=== PATIENT | female | born 1990 | race Two or more races ===

== ENCOUNTER → 2025-05-06 | Outpatient (CLI) | payer BC, SELFPAY ==
--- NOTE | 2025-05-06 13:30 | XR_ITS ---
Examination: Transvaginal ultrasound of the pelvis, complete Technique: Transvaginal sonographic images pelvis performed using pepper scale imaging Exam date and time: May 06, 2025, 1402 hours INDICATIONS: Irregular heavy menses 3 years FINDINGS: Uterus 7.6 cm endometrial stripe 0.2 cm No uterine mass or intrauterine gestation Right ovary 2.7 cm arterial flow Left ovary 2.6 cm arterial flow 16 mm follicular cyst IMPRESSION: Negative study.
== END | disposition home or self-care (01) ==
PROVIDERS: PCP Nurse Practitioner Family; Referring Provider Nurse Practitioner Family; Visit Provider Nurse Practitioner Family
DX: N92.0 Excessive and frequent menstruation with regular cycle (principal); N94.10 Unspecified dyspareunia
CPT/HCPCS: 76830